=== PATIENT | male | born 2000 | race Caucasian/White ===

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

== ENCOUNTER 2022-01-15 09:25 | Emergency (ER) | payer MEDICAID ==
[~2022-01-15] VITALS: Ht 175.3 cm; Wt 60.9 kg
[2022-01-15 09:32] VITALS: BP 113/74
[2022-01-15] MEDS ORDERED: PENI250T2 PO (10:42)
[2022-01-15] MEDS ORDERED: LIDO20SO16 PO (10:42)
== END 2022-01-15 10:55 | disposition home or self-care (01) ==
LOC: ER 09:26
DX: K12.30 Oral mucositis (ulcerative), unspecified (principal); K08.89 Other specified disorders of teeth and supporting structures; Z79.2 Long term (current) use of antibiotics
CPT/HCPCS: 99283

== ENCOUNTER 2022-09-17 14:43 | Emergency (ER) | payer MEDICAID ==
[~2022-09-17] VITALS: Ht 175.3 cm; Wt 60.0 kg
[~2022-09-17 14:43] MED LIST changes: +LIDO20SO16 PO
[2022-09-17 15:13] VITALS: BP 135/92
== END 2022-09-17 16:09 | disposition home or self-care (01) ==
LOC: ER 14:44
DX: S60.221A Contusion of right hand, initial encounter (principal); W18.39XA Other fall on same level, initial encounter; Y93.89 Activity, other specified; Y92.89 Other specified places as the place of occurrence of the external cause; Y99.8 Other external cause status
CPT/HCPCS: 73130; 99283